=== PATIENT | female | born 1940 | race Caucasian/White ===

== ENCOUNTER 2018-06-19 09:30 | Emergency (ER) | payer MEDICARE, OTHER ==
[~2018-06-19] VITALS: Ht 149.9 cm; Wt 57.6 kg
[2018-06-19 09:42] VITALS: BP 134/66
== END 2018-06-19 10:19 | disposition home or self-care (01) ==
LOC: ER 09:30
DX: R04.2 Hemoptysis (principal); Z87.891 Personal history of nicotine dependence
CPT/HCPCS: 71046

== ENCOUNTER 2019-01-01 18:59 | Inpatient (IN) | payer MEDICARE, OTHER ==
[~2019-01-01] VITALS: Ht 149.9 cm; Wt 63.1 kg
[2019-01-01] MEDS ORDERED: MORPHINE SULFATE 4 MG/ML SYR/VIAL IV ONE (19:45)
[2019-01-01] MEDS ORDERED: ONDANSETRON HCL 4 MG/2 ML VIAL IV ONE (19:45)
[2019-01-01] MEDS ORDERED: HYDROcodone-ACET 5/325MG TAB PO ONE (19:45)
[2019-01-01] MEDS ORDERED: ONDANSETRON ODT 4 MG TAB PO ONE (19:45)
[2019-01-01 22:41] LABS: Albumin 3.7 g/dL (3.4-5.0); Anion Gap 6 (5-15); Blood Urea Nitrogen 18 mg/dL (7-18); Carbon Dioxide 26 mmol/L (21-32); Chloride 110 mmol/L (98-107); Glucose 129 mg/dL (74-106); Potassium 3.5 mmol/L (3.5-5.1); Sodium 142 mmol/L (136-145)
[2019-01-01 22:46] LABS: Alanine Aminotransferase 21 U/L (13-56); Alkaline Phosphatase 88 U/L (45-117); Aspartate Aminotransferase 17 U/L (15-37); Basophils # (auto) 0.1 uL; Basophils % (auto) 0.5 % (0.0-2.0); Bilirubin, Total 0.3 mg/dL (0.2-1.0); Eosinophils # (auto) 0 uL; Eosinophils % (auto) 0.3 % (0.0-7.0); GFR African American 78 mL/min; GFR Non-African American 65 mL/min; Hematocrit 43.6 % (36.0-46.0); Hemoglobin 14.6 g/dL (12.2-16.2); Lymphocytes # (auto) 1.1 uL; Lymphocytes % (auto) 7.5 % (10.0-50.0); Mean Corpuscular Hemoglobin 31.8 pg (28.0-32.0); Mean Corpuscular Hgb Conc. 33.5 g/dL (32.0-36.0); Mean Corpuscular Volume 95.1 fL (80.0-100.0); Monocytes # (auto) 1.1 uL; Monocytes % (auto) 7.2 % (0.0-12.0); Neutrophils # (auto) 12.7 uL; Neutrophils % (auto) 84.5 % (37.0-80.0); Platelet Count (auto) 224 10^3/uL (140-450); Red Blood Cells 4.58 10^6/uL (4.0-5.20); Red Cell Distribution Width 15.8 % (11.8-14.3); Total Protein 6.7 g/dL (6.4-8.2); White Blood Cell 15.1 10^3/uL (4.4-10.8)
[2019-01-01 22:47] LABS: INR 1.02 (0.9-1.15); Partial Thromboplastin Time 25.2 sec (23.64-32.05)
[2019-01-02] MEDS ORDERED: ONDANSETRON HCL 4 MG/2 ML VIAL IV PRN (00:15)
[2019-01-02] MEDS ORDERED: ACETAMINOPHEN 500 MG TAB PO PRN (00:15)
[2019-01-02] MEDS ORDERED: ALBUTEROL SULF 2.5 MG/0.5ML(0.5%) NEB SOLN NEB PRN (00:15)
[2019-01-02] MEDS ORDERED: TEMAZEPAM 15 MG CAP PO PRN (00:15)
--- NOTE | 2019-01-02 00:39 | NUR ---
Respiratory note: PT SEEN AND ASSESSED FOR PRN MED NEB TX WHILE PT IS STILL DOWN IN ER BED 8. TX NOT INDICATED AT THIS TIME. PT DENIES ANY DISTRESS. SHE STATED THAT SHE DOESN'T REALLY LIKE TO TAKE INHALERS OR NEBULIZER TREATMENTS DUE TO THEM MAKING HER ANXIOUS, BUT SHE SAID IF ITS AN EMERGENCY AND SHE REALLY NEEDS THEM THEN SHE'LL TAKE IT. PT STATED HER BREATHING FEELS FINE RIGHT NOW. BREATH SOUNDS WERE CLEAR BILATERALLY. HR 77 RR 18 POX 97% ON ROOM AIR.
[2019-01-02] MEDS: MORPHINE SULF INJ 2 MG/ML SYRINGE 1ML IV PRN ×2 (00:46→23:10)
[2019-01-02 01:00] VITALS: BP 118/63
--- NOTE | 2019-01-02 01:30 | NUR ---
[facility] admit from ER CANDICE,TARAS [place] admitted to [facility]. Patient oriented to Deirdre Kimble, RN primary RN, unit, room, bed, and unit policies regarding patient care and visiting hours. Patient weighed by bed scale and encouraged to call if she needs anything. All questions and concerns addressed, patient verbalized understanding. Note: Patient is A&O x4. Currently on room air with no s/s of distress or SOB noted. 20 gauge IV in left AC flushed with NS and is patent. Splint in place on right forearm. Cap refill is <3 sec. skin is warm and color is WNL. Patient reports 3/10 pain to the area, which she states is tolerable at the moment. Educated on pain management techniques/options. Bed left in low locked position with side rails up x2. Will continue to monitor PRN.
[2019-01-02] MEDS ORDERED: THEO300T5 PO (02:46)
--- NOTE | 2019-01-02 03:45 | NUR ---
UA Urine sample sent to lab.
--- NOTE | 2019-01-02 03:48 | NUR ---
PAIN Patient reports 8/10 burning pain in right wrist. [place] 5/325 administered as ordered and arm elevated on pillow for comfort. Will continue to monitor patients pain level PRN.
[2019-01-02] MEDS: HYDROcodone-ACET 5/325MG TAB PO PRN ×2 (03:51→13:15)
[2019-01-02 05:00] VITALS: BP 130/70
[2019-01-02 06:07] LABS: Urine Bacteria MANY /hpf (None Seen); Urine Blood Negative /uL (Negative); Urine Mucus FEW (None Seen); Urine Specific Gravity 1.023 (1.001-1.035); Urine WBC 27 /hpf (0 - 5)
[2019-01-02 08:33] VITALS: BP 138/70
[2019-01-02 08:42] LABS: Basophils # (auto) 0 uL; Basophils % (auto) 0.3 % (0.0-2.0); Eosinophils # (auto) 0.1 uL; Eosinophils % (auto) 0.7 % (0.0-7.0); Hematocrit 40.1 % (36.0-46.0); Hemoglobin 13.4 g/dL (12.2-16.2); Lymphocytes # (auto) 1.7 uL; Lymphocytes % (auto) 16.9 % (10.0-50.0); Mean Corpuscular Hemoglobin 31.6 pg (28.0-32.0); Mean Corpuscular Hgb Conc. 33.5 g/dL (32.0-36.0); Mean Corpuscular Volume 94.4 fL (80.0-100.0); Monocytes # (auto) 1.1 uL; Monocytes % (auto) 10.4 % (0.0-12.0); Neutrophils # (auto) 7.3 uL; Neutrophils % (auto) 71.7 % (37.0-80.0); Nucleated Red Blood Cells % 0.1 %; Platelet Count (auto) 213 10^3/uL (140-450); Red Blood Cells 4.25 10^6/uL (4.0-5.20); Red Cell Distribution Width 15.3 % (11.8-14.3); White Blood Cell 10.1 10^3/uL (4.4-10.8)
[2019-01-02 08:55] LABS: BUN/Creatinine Ratio 22.4; Calcium 8.6 mg/dL (8.5-10.1); Potassium 3.7 mmol/L (3.5-5.1)
[2019-01-02] MEDS: FAMOTIDINE 20 MG TAB PO SCH (08:58)
[2019-01-02] MEDS ORDERED: FAMOTIDINE 20 MG TAB PO SCH (10:00)
--- NOTE | 2019-01-02 10:10 | NUR ---
Respiratory note: PT ASSESSED FOR PRN MEDNEB TX. NO RESPIRATORY DISTRESS NOTED. TX NOT INDICATED AT THIS TIME. SPO2 94% ON RA HR 80 RR 16 B/S CLEAR-DIMINISHED. PT AWARE TO HAVE RT PAGED IF THEY BECOME SOB.
[2019-01-02] MEDS ORDERED: cefTRIAXone 1GM/50ML D5W 50 ML IV ONE (12:45)
--- NOTE | 2019-01-02 12:48 | NUR ---
CORRECTED TIME 709 Addendum: 01/02/19 at 1249 by Liliane Alcantar RN written by mistake
--- NOTE | 2019-01-02 12:48 | NUR ---
Opening Shift Note Assumed care of patient, awake and alert, sitting up in bed watching television. No S/S of distress/SOB, no pain noted or reported at this time. Respirations are even and unlabored. Instructed on POC and instructed to call for assistance as needed, pt. verbalized understanding. Bed locked in lowest position, side rails up x2, call light within reach. Will continue to monitor for changes Q1hr and PRN. Addendum: 01/02/19 at 1249 by Liliane Alcantar RN CORRECTED TIME 0710
[2019-01-02 13:00] VITALS: BP 147/61
[2019-01-02 17:00] VITALS: BP 140/69
--- NOTE | 2019-01-02 18:42 | NUR ---
Care endorsed to shift nurse manager RN. No S/s of distress or SOB.
--- NOTE | 2019-01-02 19:23 | NUR ---
Opening Shift Note Assumed care of patient, awake and alert. No S/S of distress/SOB or pain. Instructed on POC and to call for assist PRN, will continue to monitor for changes Q1hr and PRN.
[2019-01-02 23:01] VITALS: BP 128/52
--- NOTE | 2019-01-03 03:13 | NUR ---
PT SEEN SLEEPING ON RA WITH SPO2 91%, BS CLEAR AND DIMINISHED. PRN NEB TX NOT GIVEN AT THIS TIME.
[2019-01-03] MEDS: HYDROcodone-ACET 5/325MG TAB PO PRN ×2 (04:07→09:14)
[2019-01-03 05:00] VITALS: BP 120/61
--- NOTE | 2019-01-03 07:00 | NUR ---
Consent signed for procedure
--- NOTE | 2019-01-03 07:10 | NUR ---
Opening Shift Note Assumed care of patient, awake and alert, sitting up in bed watching television. No S/S of distress/SOB, no pain noted or reported at this time. Respirations are even and unlabored. Instructed on POC and instructed to call for assistance as needed, pt. verbalized understanding. Bed locked in lowest position, side rails up x2, call light within reach. Will continue to monitor for changes Q1hr and PRN.
--- NOTE | 2019-01-03 07:59 | NUR ---
Endorsed care to day shift RN.
[2019-01-03 08:07] LABS: Basophils # (auto) 0.1 uL; Basophils % (auto) 0.7 % (0.0-2.0); Eosinophils # (auto) 0.1 uL; Eosinophils % (auto) 1.7 % (0.0-7.0); Hematocrit 42.4 % (36.0-46.0); Hemoglobin 13.9 g/dL (12.2-16.2); Lymphocytes # (auto) 1.8 uL; Lymphocytes % (auto) 20.9 % (10.0-50.0); Mean Corpuscular Hemoglobin 31.7 pg (28.0-32.0); Mean Corpuscular Hgb Conc. 32.7 g/dL (32.0-36.0); Mean Corpuscular Volume 96.9 fL (80.0-100.0); Monocytes # (auto) 1.1 uL; Monocytes % (auto) 13.1 % (0.0-12.0); Neutrophils # (auto) 5.6 uL; Neutrophils % (auto) 63.6 % (37.0-80.0); Nucleated Red Blood Cells % 0.1 %; Platelet Count (auto) 180 10^3/uL (140-450); Red Blood Cells 4.37 10^6/uL (4.0-5.20); Red Cell Distribution Width 15.9 % (11.8-14.3); White Blood Cell 8.7 10^3/uL (4.4-10.8)
[2019-01-03 09:00] VITALS: BP 137/61
[2019-01-03 09:00] LABS: BUN/Creatinine Ratio 17.4; Calcium 8.5 mg/dL (8.5-10.1); Potassium 3.6 mmol/L (3.5-5.1)
[2019-01-03] MEDS: cefTRIAXone 1GM/50ML D5W 50 ML IV SCH (09:13)
[2019-01-03] MEDS: FAMOTIDINE 20 MG TAB PO SCH (09:14)
[2019-01-03] MEDS ORDERED: ONDANSETRON HCL 4 MG/2 ML VIAL ONE (09:56)
[2019-01-03] MEDS ORDERED: PROPOFOL 10 MG/ML 20 ML IV ONE (09:56)
[2019-01-03] MEDS ORDERED: MIDAZOLAM HCL 1MG/1ML-2 ML VIAL ONE (09:56)
[2019-01-03] MEDS ORDERED: MEPERIDINE HCL (25 MG/ML) 1ML VIAL ONE (09:56)
[2019-01-03] MEDS ORDERED: fentaNYL CITRATE 100 MCG/2 ML VL ONE (09:56)
[2019-01-03] MEDS ORDERED: SODIUM CHLORIDE LOCK 10 ML ONE (09:56)
--- NOTE | 2019-01-03 10:00 | NUR ---
IV removal Left AC IV DC'd with clean sterile technique, catheter fully intact. Pressure dressing applied to site. Patient tolerated well.
--- NOTE | 2019-01-03 10:30 | NUR ---
IV insertion IV access obtained, via clean sterile technique by inserting 22 gauge catheter at left forearm after 4 attempt(s). IV secured properly. No trauma to site. Patient tolerated well.
--- NOTE | 2019-01-03 10:45 | NUR ---
Pt. taken down to OR for procedure
[2019-01-03] MEDS ORDERED: ceFAZolin 1GM/50ML 50 ML IV ONE (10:50)
[2019-01-03] MEDS ORDERED: HYDROmorphone HCL 2 MG/ML VL IV PRN (11:30)
[2019-01-03] MEDS ORDERED: METOCLOPRAMIDE HCL 5MG/ml INJ 2ml VIAL IV ONE (11:30)
[2019-01-03] MEDS ORDERED: KETOROLAC TROMETH 15 mg/ml 1ML VL IV ONE (11:30)
[2019-01-03] MEDS ORDERED: LIDOCAINE 1% HCL (LOCAL ANESTH.) INJ 20ML MDV ONE (11:53)
[2019-01-03] MEDS ORDERED: LIDOCAINE HCL 2% TOP JELLY 5ML TOP ONE (12:01)
[2019-01-03] MEDS ORDERED: HYDROcodone-ACET 10/325MG TAB PO PRN (13:30)
--- NOTE | 2019-01-03 13:35 | NUR ---
Pt. back from OR.
--- NOTE | 2019-01-03 15:34 | NUR ---
assessment Patient is a 78 year old female who is alert and oriented. Patient lived home with family and functioned independently prior to admission. Patient informed me she was entering the garage that was half down and her hat hit the edge and she fell backwards and tried to brace her fall and broke her wrist. Patients niece is at bedside and will help patient on discharge. Patient has no post discharge needs at this time. Addendum: 01/05/19 at 1538 by Sonia HURLEY Amended: Links added.
[2019-01-03] MEDS: MORPHINE SULF INJ 2 MG/ML SYRINGE 1ML IV PRN (15:41)
[2019-01-03 16:37] VITALS: BP 144/72
[2019-01-03] MEDS: HYDROcodone-ACET 7.5/325MG TAB PO PRN ×2 (18:39→23:41)
--- NOTE | 2019-01-03 18:52 | NUR ---
Care endorsed to correctional casework specialist RN. Pt. sitting up in bed eating dinner, No S/S of distress or SOB.
--- NOTE | 2019-01-03 19:30 | NUR ---
Opening Shift Note Assumed care of patient, awake and alert x4. Patient denies pain at this time. Instructed on plan of care and to call for assistance as needed. Bed is locked in lowest position, side rails x 2 are up, call light is within reach, and bed alarm is on.
[2019-01-03] MEDS: HYDROmorphone HCL 2 MG/ML VL IV PRN (20:17)
[2019-01-03 22:00] VITALS: BP 131/66
[2019-01-04 02:13] VITALS: BP 120/68
[2019-01-04] MEDS: HYDROmorphone HCL 2 MG/ML VL IV PRN (02:14)
--- NOTE | 2019-01-04 02:30 | NUR ---
PT SEEN RESTING IN BED ON 2L NC WITH SPO2 96%, BS CLEAR AND DIMINISHED. PRN NEB TX NOT GIVEN AT THIS TIME.
[2019-01-04] MEDS: HYDROcodone-ACET 7.5/325MG TAB PO PRN ×3 (04:40→15:33)
[2019-01-04 05:00] VITALS: BP 133/83
--- NOTE | 2019-01-04 07:15 | NUR ---
Opening Shift Note Assumed care of patient, awake and alert, resting in bed. No S/S of distress/SOB, no pain noted or reported at this time. Respirations are even and unlabored. Instructed on POC and instructed to call for assistance as needed, pt. verbalized understanding. Bed locked in lowest position, side rails up x2, call light within reach. Will continue to monitor for changes Q1hr and PRN.
[2019-01-04 07:37] LABS: Basophils # (auto) 0 uL; Basophils % (auto) 0.5 % (0.0-2.0); Eosinophils # (auto) 0.2 uL; Eosinophils % (auto) 2.3 % (0.0-7.0); Hemoglobin 13.4 g/dL (12.2-16.2); Lymphocytes # (auto) 1.4 uL; Lymphocytes % (auto) 16.1 % (10.0-50.0); Mean Corpuscular Hemoglobin 31.8 pg (28.0-32.0); Mean Corpuscular Hgb Conc. 33.6 g/dL (32.0-36.0); Mean Corpuscular Volume 94.7 fL (80.0-100.0); Monocytes # (auto) 1.2 uL; Monocytes % (auto) 13.7 % (0.0-12.0); Neutrophils # (auto) 5.8 uL; Neutrophils % (auto) 67.4 % (37.0-80.0); Platelet Count (auto) 175 10^3/uL (140-450); Red Blood Cells 4.22 10^6/uL (4.0-5.20); Red Cell Distribution Width 15.3 % (11.8-14.3); White Blood Cell 8.6 10^3/uL (4.4-10.8)
--- NOTE | 2019-01-04 07:39 | NUR ---
CLOSING SHIFT NOTE Endorsed patient care to Liliane BRYSON.
[2019-01-04 07:44] LABS: BUN/Creatinine Ratio 18.8; Calcium 8.9 mg/dL (8.5-10.1); Potassium 4.2 mmol/L (3.5-5.1)
[2019-01-04] MEDS: FAMOTIDINE 20 MG TAB PO SCH (08:39)
[2019-01-04] MEDS: cefTRIAXone 1GM/50ML D5W 50 ML IV SCH (08:39)
[2019-01-04 09:00] VITALS: BP 130/54
--- NOTE | 2019-01-04 09:11 | NUR ---
Respiratory note: ROUTINE PRN TX CHECK. HR 80, RR 18, POX 93% ON 3L/M NC, BREATH SOUNDS ARE CLEAR/DIMINISHED. NO SOB OR DISTRESS NOTED. PT WAS NOTIFY TO HAVE RN PAGE RT FOR MN TX.
--- NOTE | 2019-01-04 11:03 | NUR ---
IV removal IV DC'd with clean sterile technique, catheter fully intact. Pressure dressing applied to site. Patient tolerated well.
[2019-01-04 12:41] VITALS: BP 138/86
[2019-01-04 12:56] VITALS: BP 138/86
--- NOTE | 2019-01-04 15:50 | NUR ---
SPOKE WITH DR. QUIROZ REGARDING HOSPITALIST DISCHARGE DR. QUIROZ SAID PT. IS CLEARED TO BE DISCHARGED AND TO FOLLOW UP IN HIS OFFICE NEXT WEDNESDAY. APPOINTMENT SCHEDULED FOR January.
--- NOTE | 2019-01-04 16:30 | NUR ---
Discharge instructions given as ordered. Encourage to follow up with PCP and ortho surgeon Dr Estrada as instructed. All questions and concerns addressed. Patient verbalized understanding. Medication reconciliation form completed and copy given to patient. Patient taken to vehicle via wheelchair with all personal belongings, accompanied by staff and family member. No distress noted at time of departure.
== END 2019-01-04 16:35 | disposition home or self-care (01) | DRG 510 ==
LOC: ER 18:59 → EDBD 18:59 → OVERFLOW 19:00 → WEST WING 01-02 01:37
PROVIDERS: ADMIT Nurse Practitioner Family; ATTEND Internal Medicine
PROC: 0PSH34Z Reposition Right Radius with Internal Fixation Device, Percutaneous Approach (ICD-10-PCS; principal; 2019-01-03 11:59)
DX: S52.531A Colles' fracture of right radius, initial encounter for closed fracture (principal); N17.0 Acute kidney failure with tubular necrosis; N39.0 Urinary tract infection, site not specified; J44.9 Chronic obstructive pulmonary disease, unspecified; N18.9 Chronic kidney disease, unspecified; Y93.01 Activity, walking, marching and hiking; W18.39XA Other fall on same level, initial encounter; Y92.89 Other specified places as the place of occurrence of the external cause; Y99.8 Other external cause status; Z88.2 Allergy status to sulfonamides
CPT/HCPCS: 36415; 71045; 73100; 73110; 76000; 80048; 80053; 81001; 83880; 84484; 85025; 85610; 85730; 93005; 96365; 96375; G0378; J0690; J0696; J2001; J2250; J2405; J2704

== ENCOUNTER 2019-08-23 09:44 | Emergency (ER) | payer MEDICARE, OTHER ==
[~2019-08-23] VITALS: Ht 149.9 cm; Wt 57.6 kg
[~2019-08-23 09:44] MED LIST: THEO300T5 PO
[2019-08-23 10:16] LABS: Basophils # (auto) 0.1 uL; Basophils % (auto) 0.8 % (0.0-2.0); Eosinophils # (auto) 0.1 uL; Eosinophils % (auto) 0.6 % (0.0-7.0); Hematocrit 45.5 % (36.0-46.0); Hemoglobin 15.3 g/dL (12.2-16.2); Lymphocytes # (auto) 1.8 uL; Lymphocytes % (auto) 19.7 % (10.0-50.0); Mean Corpuscular Hemoglobin 31.1 pg (28.0-32.0); Mean Corpuscular Hgb Conc. 33.6 g/dL (32.0-36.0); Mean Corpuscular Volume 92.6 fL (80.0-100.0); Neutrophils # (auto) 6.3 uL; Neutrophils % (auto) 67.9 % (37.0-80.0); Nucleated Red Blood Cells % 0.1 %; Platelet Count (auto) 269 10^3/uL (140-450); Red Blood Cells 4.91 10^6/uL (4.0-5.20); Red Cell Distribution Width 14.2 % (11.8-14.3); White Blood Cell 9.2 10^3/uL (4.4-10.8)
[2019-08-23 10:31] LABS: Albumin 3.7 g/dL (3.4-5.0); Blood Urea Nitrogen 12 mg/dL (7-18); Calcium 9.3 mg/dL (8.5-10.1); Carbon Dioxide 27 mmol/L (21-32); Glucose 95 mg/dL (74-106)
[2019-08-23] MEDS ORDERED: IBUPROFEN 600 MG TAB PO ONE (10:45)
[2019-08-23 10:51] LABS: Alanine Aminotransferase 14 U/L (13-56); Alkaline Phosphatase 111 U/L (45-117); Anion Gap 6 (5-15); Aspartate Aminotransferase 14 U/L (15-37); BUN/Creatinine Ratio 15.6; Bilirubin, Total 0.5 mg/dL (0.2-1.0); Chloride 107 mmol/L (98-107); GFR African American 93 mL/min; GFR Non-African American 77 mL/min; Potassium 3.7 mmol/L (3.5-5.1); Sodium 140 mmol/L (136-145); Total Protein 7.6 g/dL (6.4-8.2)
[2019-08-23 11:29] LABS: Urine Bacteria FEW /hpf (None Seen); Urine Blood Negative /uL (Negative); Urine Specific Gravity 1.007 (1.001-1.035); Urine WBC 5 /hpf (0 - 5)
[2019-08-23 12:25] VITALS: BP 128/58
== END 2019-08-23 12:24 | disposition home or self-care (01) ==
LOC: ER 09:44
DX: R07.89 Other chest pain (principal); N39.0 Urinary tract infection, site not specified; J44.9 Chronic obstructive pulmonary disease, unspecified; Z88.2 Allergy status to sulfonamides
CPT/HCPCS: 36415; 71046; 80053; 81001; 84484; 85025; 93005

== ENCOUNTER 2021-07-06 09:50 | Inpatient (IN) | payer MEDICARE, OTHER ==
[~2021-07-06] VITALS: Ht 144.8 cm; Wt 59.2 kg
[2021-07-06 10:43] LABS: Basophils # (auto) 0.1 10 ^3/uL (0-0.2); Basophils % (auto) 0.8 % (0.0-2.0); Eosinophils # (auto) 0.1 10 ^3/uL (0-0.8); Eosinophils % (auto) 0.8 % (0.0-7.0); Hematocrit 44.1 % (36.0-46.0); Hemoglobin 14.9 g/dL (12.2-16.2); Lymphocytes # (auto) 1.7 10 ^3/uL (0.4-5.4); Lymphocytes % (auto) 23.7 % (10.0-50.0); Mean Corpuscular Hemoglobin 31.5 pg (28.0-32.0); Mean Corpuscular Hgb Conc. 33.8 g/dL (32.0-36.0); Mean Corpuscular Volume 93.2 fL (80.0-100.0); Monocytes # (auto) 1.3 10 ^3/uL (0-1.3); Monocytes % (auto) 18.2 % (0.0-12.0); Neutrophils % (auto) 56.5 % (37.0-80.0); Nucleated Red Blood Cells % 0.1 %; Red Blood Cells 4.74 10^6/uL (4.0-5.20); White Blood Cell 7.2 10^3/uL (4.4-10.8)
[2021-07-06 11:13] LABS: Albumin 3.3 g/dL (3.4-5.0); Calcium 8.6 mg/dL (8.5-10.1); Potassium 3.4 mmol/L (3.5-5.1)
[2021-07-06 11:19] LABS: BUN/Creatinine Ratio 16.5; Bilirubin, Total 0.3 mg/dL (0.2-1.0); Total Protein 6.9 g/dL (6.4-8.2)
[2021-07-06] MEDS ORDERED: methylPREDNISolone SOD SUCC 125 MG/2 ML VL IV ONE (11:30)
[2021-07-06] MEDS ORDERED: IPRATROPIUM BROM 0.5 MG/2.5ML INH SOL NEB ONE ×2 (11:30→19:30)
[2021-07-06] MEDS ORDERED: ALBUTEROL SULF 2.5 MG/0.5ML(0.5%) NEB SOLN NEB ONE ×2 (11:30→19:30)
[2021-07-06 15:13] LABS: Urine Bacteria MANY /hpf (None Seen); Urine Blood Negative /uL (Negative); Urine Mucus FEW (None Seen); Urine Specific Gravity 1.008 (1.001-1.035); Urine WBC 28 /hpf (0 - 5)
[2021-07-06] MEDS ORDERED: cefTRIAXone 1GM/50ML D5W 50 ML IV ONE (15:45)
[2021-07-06] MEDS ORDERED: POTASSIUM EFFERVESENT TAB 25 MEQ PO ONE (15:45)
[2021-07-06] MEDS ORDERED: MORPHINE SULFATE INJECTION 2 MG/ML SYRG IV PRN ×3 (18:00→20:15)
[2021-07-06] MEDS ORDERED: NITROGLYCERIN 0.4 MG SL TAB SL PRN ×2 (18:00→20:15)
[2021-07-06] MEDS ORDERED: MAGNESIUM SULFATE 1GM/100ML 100 ML IV ONE (19:15)
[2021-07-06] MEDS ORDERED: THEOPHYLLINE 80 MG/15ml ORAL Elixir PO ONE (19:15)
[2021-07-06] MEDS ORDERED: AZITHROMYCIN 500MG/ 250ML 250 ML IV ONE (19:30)
[2021-07-06] MEDS ORDERED: BRIMONIDINE 0.2% OPTH Soln 5ml EACHEYE ONE (19:30)
[2021-07-06] MEDS ORDERED: ALBUTEROL SULF 2.5 MG/0.5ML(0.5%) NEB SOLN NEB PRN (19:30)
[2021-07-06] MEDS ORDERED: BUDESONIDE (INHALATION) 0.5 MG/2 ML NEB NEB ONE (19:30)
[2021-07-06] MEDS ORDERED: LORazepam 0.5 MG TAB PO PRN (20:15)
[2021-07-06] MEDS ORDERED: HYDROcodone-ACET 5/325MG TAB PO PRN (20:15)
[2021-07-06] MEDS ORDERED: DOCUSATE SOD 100 MG CAP PO PRN (20:15)
[2021-07-06] MEDS ORDERED: ONDANSETRON HCL 4 MG/2 ML VIAL IV PRN (20:15)
[2021-07-06] MEDS ORDERED: ALUM & MAG HYDROX-SIMETH LIQ(MAALOX) 30 ML PO PRN (20:15)
[2021-07-06] MEDS ORDERED: ACETAMINOPHEN 325 MG TAB PO PRN (20:15)
[2021-07-06 20:54] LABS: Cholesterol 183 mg/dL (< 200)
[2021-07-06 20:55] LABS: Barbiturate Scree,Urine NEGATIVE (NEGATIVE); Benzodiazephine Screen, Urine NEGATIVE (NEGATIVE); Cannabinoid Screen, Urine NEGATIVE (NEGATIVE); Cocaine Screen, Urine NEGATIVE (NEGATIVE); Opiate Scree,Urine NEGATIVE (NEGATIVE); Phencyclidine Screen, Urine NEGATIVE (NEGATIVE)
[2021-07-06 20:57] LABS: HDL Cholesterol 62 mg/dL (40-59); LDL Cholesterol 97 mg/dL (< 100); Triglycerides 118 mg/dL (< 150)
[2021-07-06 21:01] LABS: Amphetamine Screen, Urine NEGATIVE (NEGATIVE)
[2021-07-06 22:00] VITALS: BP 131/71
[2021-07-06] MEDS: BUDESONIDE (INHALATION) 0.5 MG/2 ML NEB NEB SCH (22:00)
[2021-07-06] MEDS: IPRATROPIUM BROM 0.5 MG/2.5ML INH SOL NEB SCH (22:00)
[2021-07-06] MEDS: THEOPHYLLINE 80 MG/15ml ORAL Elixir PO SCH (22:00)
[2021-07-06] MEDS ORDERED: IPRATROPIUM BROM 0.5 MG/2.5ML INH SOL NEB SCH (22:00)
[2021-07-06] MEDS ORDERED: BUDESONIDE (INHALATION) 0.5 MG/2 ML NEB NEB SCH (22:00)
[2021-07-06] MEDS: BRIMONIDINE 0.2% OPTH Soln 5ml EACHEYE SCH (22:00)
[2021-07-06] MEDS: ALBUTEROL SULF 2.5 MG/0.5ML(0.5%) NEB SOLN NEB SCH (22:00)
[2021-07-06] MEDS: methylPREDNISolone SOD SUCC 40 MG/ML VL IV SCH (22:34)
[2021-07-06] MEDS: POTASSIUM CHL 20 Meq TABLET PO SCH (22:35)
[2021-07-07] VITALS (7 sets, daily range): BP systolic 108–131; BP diastolic 60–77
[2021-07-07] MEDS: ALBUTEROL SULF 2.5 MG/0.5ML(0.5%) NEB SOLN NEB SCH ×6 (02:03→22:38)
[2021-07-07] MEDS: IPRATROPIUM BROM 0.5 MG/2.5ML INH SOL NEB SCH ×6 (02:04→22:38)
[2021-07-07] MEDS ORDERED: THEO400T10 PO (03:30)
[2021-07-07 05:24] LABS: Basophils # (auto) 0 10 ^3/uL (0-0.2); Basophils % (auto) 0.1 % (0.0-2.0); Eosinophils # (auto) 0 10 ^3/uL (0-0.8); Hematocrit 42.1 % (36.0-46.0); Hemoglobin 14.3 g/dL (12.2-16.2); Lymphocytes # (auto) 0.6 10 ^3/uL (0.4-5.4); Lymphocytes % (auto) 11.1 % (10.0-50.0); Mean Corpuscular Hemoglobin 31.5 pg (28.0-32.0); Mean Corpuscular Hgb Conc. 33.9 g/dL (32.0-36.0); Monocytes # (auto) 0.3 10 ^3/uL (0-1.3); Neutrophils # (auto) 4.7 10 ^3/uL (1.6-8.6); Neutrophils % (auto) 83.8 % (37.0-80.0); Red Blood Cells 4.53 10^6/uL (4.0-5.20); Red Cell Distribution Width 14.7 % (11.8-14.3); White Blood Cell 5.7 10^3/uL (4.4-10.8)
[2021-07-07 05:42] LABS: Albumin 3.1 g/dL (3.4-5.0); Calcium 8.5 mg/dL (8.5-10.1); Potassium 4.4 mmol/L (3.5-5.1)
[2021-07-07 05:48] LABS: BUN/Creatinine Ratio 22.7; Bilirubin, Total 0.2 mg/dL (0.2-1.0); INR 1.05 (0.9-1.15); Partial Thromboplastin Time 23.9 sec (23.6-33.0); Phosphorus 2.5 mg/dL (2.5-4.90); Total Protein 6.4 g/dL (6.4-8.2)
[2021-07-07] MEDS: FUROSEMIDE 20 MG/2 ML VIAL IV SCH ×2 (05:51→17:52)
[2021-07-07] MEDS: methylPREDNISolone SOD SUCC 40 MG/ML VL IV SCH ×3 (05:52→21:21)
[2021-07-07] MEDS: BUDESONIDE (INHALATION) 0.5 MG/2 ML NEB NEB SCH ×2 (06:06→22:38)
[2021-07-07] MEDS: THEOPHYLLINE 80 MG/15ml ORAL Elixir PO SCH ×3 (06:57→21:21)
[2021-07-07] MEDS: BRIMONIDINE 0.2% OPTH Soln 5ml EACHEYE SCH ×3 (06:57→21:29)
[2021-07-07] MEDS: cefTRIAXone 1GM/50ML D5W 50 ML IV SCH (09:09)
[2021-07-07] MEDS: AZITHROMYCIN 500MG/ 250ML 250 ML IV SCH (09:09)
[2021-07-07] MEDS: POTASSIUM CHL 20 Meq TABLET PO SCH ×2 (09:10→21:21)
[2021-07-07] MEDS: ENOXAPARIN SOD 40 MG/0.4 ML SYRINGE SC SCH (09:10)
[2021-07-08 04:53] VITALS: BP 122/67
[2021-07-08] MEDS: IPRATROPIUM BROM 0.5 MG/2.5ML INH SOL NEB SCH ×5 (05:34→23:10)
[2021-07-08] MEDS: ALBUTEROL SULF 2.5 MG/0.5ML(0.5%) NEB SOLN NEB SCH ×5 (05:34→23:10)
[2021-07-08] MEDS: BUDESONIDE (INHALATION) 0.5 MG/2 ML NEB NEB SCH ×2 (05:34→19:16)
[2021-07-08 06:04] LABS: BUN/Creatinine Ratio 31.6; Calcium 8.4 mg/dL (8.5-10.1); Potassium 4.5 mmol/L (3.5-5.1)
[2021-07-08] MEDS: THEOPHYLLINE 80 MG/15ml ORAL Elixir PO SCH ×3 (06:07→22:00)
[2021-07-08] MEDS: BRIMONIDINE 0.2% OPTH Soln 5ml EACHEYE SCH ×2 (06:07→18:00)
[2021-07-08] MEDS: FUROSEMIDE 20 MG/2 ML VIAL IV SCH ×2 (06:09→18:24)
[2021-07-08 06:21] LABS: Basophils # (auto) 0 10 ^3/uL (0-0.2); Basophils % (auto) 0.1 % (0.0-2.0); Eosinophils # (auto) 0 10 ^3/uL (0-0.8); Hematocrit 41.1 % (36.0-46.0); Lymphocytes % (auto) 6.1 % (10.0-50.0); Mean Corpuscular Hemoglobin 31.4 pg (28.0-32.0); Mean Corpuscular Volume 92.5 fL (80.0-100.0); Monocytes # (auto) 0.6 10 ^3/uL (0-1.3); Monocytes % (auto) 3.9 % (0.0-12.0); Neutrophils # (auto) 14.9 10 ^3/uL (1.6-8.6); Neutrophils % (auto) 89.9 % (37.0-80.0); Nucleated Red Blood Cells % 0.1 %; Red Blood Cells 4.45 10^6/uL (4.0-5.20); Red Cell Distribution Width 14.8 % (11.8-14.3); White Blood Cell 16.6 10^3/uL (4.4-10.8)
[2021-07-08 09:00] VITALS: BP 113/56
[2021-07-08] MEDS: POTASSIUM CHL 20 Meq TABLET PO SCH ×2 (09:48→22:45)
[2021-07-08] MEDS: methylPREDNISolone SOD SUCC 40 MG/ML VL IV SCH ×2 (09:48→22:44)
[2021-07-08] MEDS: ENOXAPARIN SOD 40 MG/0.4 ML SYRINGE SC SCH (09:48)
[2021-07-08] MEDS: cefTRIAXone 1GM/50ML D5W 50 ML IV SCH (09:48)
[2021-07-08 13:00] VITALS: BP 122/64
[2021-07-08] MEDS: AZITHROMYCIN 500MG/ 250ML 250 ML IV SCH (14:30)
[2021-07-08 17:00] VITALS: BP 121/59
[2021-07-08 20:00] VITALS: BP 103/61
[2021-07-09 05:18] LABS: Basophils # (auto) 0 10 ^3/uL (0-0.2); Basophils % (auto) 0.1 % (0.0-2.0); Eosinophils # (auto) 0 10 ^3/uL (0-0.8); Hematocrit 40.2 % (36.0-46.0); Hemoglobin 13.3 g/dL (12.2-16.2); Lymphocytes % (auto) 7.1 % (10.0-50.0); Mean Corpuscular Hemoglobin 30.9 pg (28.0-32.0); Mean Corpuscular Hgb Conc. 33.2 g/dL (32.0-36.0); Mean Corpuscular Volume 93.1 fL (80.0-100.0); Monocytes # (auto) 0.5 10 ^3/uL (0-1.3); Monocytes % (auto) 3.3 % (0.0-12.0); Neutrophils # (auto) 12.5 10 ^3/uL (1.6-8.6); Neutrophils % (auto) 89.5 % (37.0-80.0); Nucleated Red Blood Cells % 0.1 %; Red Blood Cells 4.32 10^6/uL (4.0-5.20); Red Cell Distribution Width 14.8 % (11.8-14.3)
[2021-07-09 05:36] LABS: Calcium 8.6 mg/dL (8.5-10.1); Potassium 5.1 mmol/L (3.5-5.1)
[2021-07-09 05:38] VITALS: BP 109/65
[2021-07-09] MEDS: THEOPHYLLINE 80 MG/15ml ORAL Elixir PO SCH ×3 (06:00→22:17)
[2021-07-09] MEDS: FUROSEMIDE 20 MG/2 ML VIAL IV SCH ×2 (06:11→17:51)
[2021-07-09] MEDS: BRIMONIDINE 0.2% OPTH Soln 5ml EACHEYE SCH ×2 (06:11→17:47)
[2021-07-09] MEDS: IPRATROPIUM BROM 0.5 MG/2.5ML INH SOL NEB SCH ×5 (06:44→22:48)
[2021-07-09] MEDS: ALBUTEROL SULF 2.5 MG/0.5ML(0.5%) NEB SOLN NEB SCH ×5 (06:44→22:48)
[2021-07-09 09:00] VITALS: BP 105/61
[2021-07-09] MEDS: methylPREDNISolone SOD SUCC 40 MG/ML VL IV SCH ×2 (09:53→22:16)
[2021-07-09] MEDS: ENOXAPARIN SOD 40 MG/0.4 ML SYRINGE SC SCH (09:53)
[2021-07-09] MEDS: AZITHROMYCIN 500MG/ 250ML 250 ML IV SCH (09:54)
[2021-07-09] MEDS: cefTRIAXone 1GM/50ML D5W 50 ML IV SCH (09:54)
[2021-07-09] MEDS: POTASSIUM CHL 20 Meq TABLET PO SCH ×2 (09:55→22:00)
[2021-07-09 13:00] VITALS: BP 111/62
[2021-07-09 17:00] VITALS: BP 109/63
[2021-07-09] MEDS: BUDESONIDE (INHALATION) 0.5 MG/2 ML NEB NEB SCH (18:37)
[2021-07-09 22:13] VITALS: BP 115/69
[2021-07-10 05:00] VITALS: BP 122/60
[2021-07-10] MEDS: FUROSEMIDE 20 MG/2 ML VIAL IV SCH (05:55)
[2021-07-10] MEDS: THEOPHYLLINE 80 MG/15ml ORAL Elixir PO SCH ×2 (05:56→14:00)
[2021-07-10] MEDS: BRIMONIDINE 0.2% OPTH Soln 5ml EACHEYE SCH (05:56)
[2021-07-10 06:47] LABS: Hematocrit 44.7 % (36.0-46.0); Hemoglobin 14.9 g/dL (12.2-16.2); Mean Corpuscular Hemoglobin 31.3 pg (28.0-32.0); Mean Corpuscular Hgb Conc. 33.4 g/dL (32.0-36.0); Mean Corpuscular Volume 93.7 fL (80.0-100.0); Red Blood Cells 4.77 10^6/uL (4.0-5.20); White Blood Cell 14.1 10^3/uL (4.4-10.8)
[2021-07-10 07:14] LABS: Anion Gap 14 (5-15); BUN/Creatinine Ratio 31.7; Blood Urea Nitrogen 26 mg/dL (7-18); Calcium 9.1 mg/dL (8.5-10.1); Carbon Dioxide 20 mmol/L (21-32); Chloride 103 mmol/L (98-107); GFR African American 86 mL/min; GFR Non-African American 71 mL/min; Glucose 116 mg/dL (74-106); Potassium 5.1 mmol/L (3.5-5.1); Sodium 137 mmol/L (136-145)
[2021-07-10 07:16] LABS: Basophils % (manual) 0 (0.0-2.0); Blast Cells 0; Eosinophils % (manual) 0 (0-7); Myelocytes % 0; Promyelocytes % 0; Reactive Lymphocytes 0
[2021-07-10] MEDS: IPRATROPIUM BROM 0.5 MG/2.5ML INH SOL NEB SCH ×3 (07:47→13:48)
[2021-07-10] MEDS: ALBUTEROL SULF 2.5 MG/0.5ML(0.5%) NEB SOLN NEB SCH ×3 (07:47→13:48)
[2021-07-10 08:24] LABS: Band Neutrophils % (manual) 2; Lymphocytes % (manual) 12 (10.0-50.0); Metamyelocytes % 1; Monocytes % (manual) 2 (0-12)
[2021-07-10 09:00] VITALS: BP 102/51
[2021-07-10] MEDS: cefTRIAXone 1GM/50ML D5W 50 ML IV SCH (09:40)
[2021-07-10] MEDS: ENOXAPARIN SOD 40 MG/0.4 ML SYRINGE SC SCH (09:41)
[2021-07-10] MEDS: methylPREDNISolone SOD SUCC 40 MG/ML VL IV SCH (09:45)
[2021-07-10] MEDS: POTASSIUM CHL 20 Meq TABLET PO SCH (09:46)
[2021-07-10] MEDS: BUDESONIDE (INHALATION) 0.5 MG/2 ML NEB NEB SCH (10:00)
[2021-07-10] MEDS ORDERED: PRED20TA2 PO (10:15)
[2021-07-10] MEDS ORDERED: ALBU1AER4 IN (10:15)
[2021-07-10] MEDS ORDERED: CEPH-322 PO (10:16)
[2021-07-10] MEDS: AZITHROMYCIN 500MG/ 250ML 250 ML IV SCH (10:50)
[2021-07-10 12:38] VITALS: BP 138/69
[2021-07-10 16:48] VITALS: BP 118/66
== END 2021-07-10 18:05 | disposition home or self-care (01) | DRG 190 ==
LOC: ER 09:50 → OVERFLOW 17:56 → EAST 23:12 → CENTRAL 07-07 17:36
PROVIDERS: ADMIT Hospitalist; ATTEND Internal Medicine Pulmonary Disease
DX: J44.1 Chronic obstructive pulmonary disease with (acute) exacerbation (principal); J96.01 Acute respiratory failure with hypoxia; N39.0 Urinary tract infection, site not specified; E44.1 Mild protein-calorie malnutrition; E87.6 Hypokalemia; B96.1 Klebsiella pneumoniae [K. pneumoniae] as the cause of diseases classified elsewhere; F17.200 Nicotine dependence, unspecified, uncomplicated; Z20.822 Contact with and (suspected) exposure to COVID-19; Z83.3 Family history of diabetes mellitus; Z68.25 Body mass index [BMI] 25.0-25.9, adult; Z88.2 Allergy status to sulfonamides
CPT/HCPCS: 36415; 36600; 71045; 80048; 80053; 80061; 80307; 81001; 82805; 83036; 83735; 83880; 84100; 84484; 85007; 85025; 85027; 85379; 85610; 85730; 87040; 87086; 87088; 87186; 87205; 87426; 93005; 94640; 96365; G0378; J0696

== ENCOUNTER 2022-12-17 04:03 | Inpatient (IN) | payer OTHER ==
[~2022-12-17] VITALS: Ht 160 cm; Wt 68.0 kg
[~2022-12-17 04:03] MED LIST changes: +ALBU1AER4 IN; +CEPH250C PO; +PRED20TA2 PO; +THEO400T8 PO
[2022-12-17] MEDS ORDERED: HYDROmorphone HCL 2 MG/ML VL/or syr IV ONE (04:15)
[2022-12-17] MEDS ORDERED: ONDANSETRON ODT 4 MG TAB PO ONE (06:15)
[2022-12-17 07:40] LABS: Basophils # (auto) 0.1 10 ^3/uL (0-0.2); Basophils % (auto) 0.4 % (0.0-2.0); Eosinophils # (auto) 0 10 ^3/uL (0-0.8); Eosinophils % (auto) 0.1 % (0.0-7.0); Hematocrit 41.1 % (36.0-46.0); Hemoglobin 13.9 g/dL (12.2-16.2); Lymphocytes # (auto) 0.8 10 ^3/uL (0.4-5.4); Lymphocytes % (auto) 5.2 % (10.0-50.0); Mean Corpuscular Hemoglobin 31.2 pg (28.0-32.0); Mean Corpuscular Hgb Conc. 33.8 g/dL (32.0-36.0); Mean Corpuscular Volume 92.1 fL (80.0-100.0); Monocytes % (auto) 6.3 % (0.0-12.0); Neutrophils # (auto) 13.9 10 ^3/uL (1.6-8.6); Red Blood Cells 4.46 10^6/uL (4.0-5.20); White Blood Cell 15.8 10^3/uL (4.4-10.8)
[2022-12-17 07:46] LABS: Albumin 3.6 g/dL (3.4-5.0); Calcium 8.7 mg/dL (8.5-10.1); Potassium 3.6 mmol/L (3.5-5.1)
[2022-12-17 07:50] LABS: BUN/Creatinine Ratio 23.7 (10.0-20.0); Bilirubin, Total 0.4 mg/dL (0.2-1.0); Total Protein 5.9 g/dL (6.4-8.2)
[2022-12-17] MEDS ORDERED: MORPHINE SULFATE INJ 2 MG/ml SYRG IV ONE (08:15)
[2022-12-17] MEDS ORDERED: ONDANSETRON HCL 4 MG/2 ML VIAL IV ONE (08:15)
[2022-12-17 10:33] LABS: Urine Bacteria NONE SEEN /hpf (None Seen); Urine Blood Negative /uL (Negative); Urine Specific Gravity 1.011 (1.001-1.035); Urine WBC 2 /hpf (0 - 5)
[2022-12-17] MEDS ORDERED: ALBUTEROL SULF 2.5 MG/0.5ML(0.5%) NEB SOLN NEB PRN (11:00)
[2022-12-17] MEDS ORDERED: IPRATROPIUM BROM 0.5 MG/2.5ML INH SOL NEB PRN (11:00)
[2022-12-17] MEDS: SODIUM CHLORIDE 0.9% 1,000 ML IV SCH (11:24)
[2022-12-17] MEDS: ONDANSETRON HCL 4 MG/2 ML VIAL IV PRN ×2 (13:38→19:38)
[2022-12-17] MEDS: MORPHINE SULFATE INJ 2 MG/ml SYRG IV PRN ×2 (13:39→19:38)
[2022-12-17 14:24] VITALS: BP 130/64
[2022-12-17] MEDS ORDERED: FAMO20TA10 PO (16:26)
[2022-12-17 16:58] VITALS: BP 118/42
[2022-12-17] MEDS: HYDROcodone-ACET 5/325MG TAB PO PRN (21:44)
[2022-12-18] VITALS (12 sets, daily range): BP systolic 97–143; BP diastolic 34–67
[2022-12-18] MEDS: SODIUM CHLORIDE 0.9% 1,000 ML IV SCH ×2 (01:34→15:36)
[2022-12-18] MEDS: ONDANSETRON HCL 4 MG/2 ML VIAL IV PRN ×2 (03:17→06:53)
[2022-12-18] MEDS: MORPHINE SULFATE INJ 2 MG/ml SYRG IV PRN ×2 (03:18→06:52)
[2022-12-18 06:39] LABS: Potassium 3.9 mmol/L (3.5-5.1)
[2022-12-18 06:46] LABS: Albumin 3.1 g/dL (3.4-5.0); BUN/Creatinine Ratio 25.6 (10.0-20.0); Basophils # (auto) 0 10 ^3/uL (0-0.2); Basophils % (auto) 0.4 % (0.0-2.0); Bilirubin, Total 0.8 mg/dL (0.2-1.0); Eosinophils # (auto) 0 10 ^3/uL (0-0.8); Eosinophils % (auto) 0.3 % (0.0-7.0); Hematocrit 36.4 % (36.0-46.0); Hemoglobin 12.2 g/dL (12.2-16.2); Lymphocytes # (auto) 1.6 10 ^3/uL (0.4-5.4); Lymphocytes % (auto) 12.7 % (10.0-50.0); Mean Corpuscular Hemoglobin 31.1 pg (28.0-32.0); Mean Corpuscular Hgb Conc. 33.6 g/dL (32.0-36.0); Mean Corpuscular Volume 92.5 fL (80.0-100.0); Monocytes # (auto) 1.9 10 ^3/uL (0-1.3); Monocytes % (auto) 15.6 % (0.0-12.0); Neutrophils # (auto) 8.8 10 ^3/uL (1.6-8.6); Red Blood Cells 3.93 10^6/uL (4.0-5.20); Red Cell Distribution Width 14.2 % (11.8-14.3); Total Protein 5.8 g/dL (6.4-8.2); White Blood Cell 12.4 10^3/uL (4.4-10.8)
[2022-12-18] MEDS: PANTOPRAZOLE 40 MG/10 ML VIAL INJ IV SCH (09:52)
[2022-12-18] MEDS: ENOXAPARIN SOD 40 MG/0.4 ML SYRINGE SC SCH (09:56)
[2022-12-18] MEDS ORDERED: ceFAZolin 1GM/50ML 100 ML IV ONE (11:43)
[2022-12-18] MEDS ORDERED: TETRACAINE 1% INJ 2 ML VIAL IJ ONE (12:28)
[2022-12-18] MEDS ORDERED: BUPIVACAINE 0.25% INJ 50ML VIAL ONE (12:31)
[2022-12-18] MEDS ORDERED: MORPHINE SULF PF 5 MG/10 ML VIAL ONE (12:33)
[2022-12-18] MEDS ORDERED: MIDAZOLAM HCL 2MG/2ML 2ml VIAL (1mg/ml) ONE (12:34)
[2022-12-18] MEDS ORDERED: fentaNYL CITRATE 100 MCG/2 ML VL ONE (12:34)
[2022-12-18] MEDS ORDERED: ePHEDrine SULFATE 50 MG/ML AMP IV PRN (13:30)
[2022-12-18] MEDS ORDERED: MIDAZOLAM HCL 2MG/2ML 2ml VIAL (1mg/ml) IV PRN (13:30)
[2022-12-18] MEDS ORDERED: HYDROmorphone HCL 2 MG/ML VL/or syr IV PRN (13:30)
[2022-12-18] MEDS ORDERED: ONDANSETRON HCL 4 MG/2 ML VIAL IV PRN (13:30)
[2022-12-18] MEDS ORDERED: NALOXONE HCL 0.4 MG/ML VIAL IV PRN (13:30)
[2022-12-18] MEDS ORDERED: LABETALOL HCL 5 MG/ML 4ML SYRINGE IV PRN (13:30)
[2022-12-18] MEDS ORDERED: DexAMETHasone SOD PHOS 10MG/1ML VIAL INJ IV PRN (13:30)
[2022-12-18] MEDS ORDERED: PHENYLEPHRINE HCL 10 MG/ML VL IV ONE (13:45)
[2022-12-18] MEDS ORDERED: PROPOFOL 10 MG/ML 20 ML IV ONE (13:46)
[2022-12-18] MEDS ORDERED: DexAMETHasone SOD PHOS 10MG/1ML VIAL INJ ONE (13:46)
[2022-12-18] MEDS: ceFAZolin 1GM/50ML 50 ML IV SCH (21:50)
[2022-12-18] MEDS ORDERED: FAMOTIDINE 20 MG TAB PO SCH (22:00)
[2022-12-18] MEDS ORDERED: LORazepam 2MG/ML-1ML VIAL IV PRN (22:45)
[2022-12-19] VITALS (19 sets, daily range): BP systolic 87–127; BP diastolic 50–110
[2022-12-19] MEDS: ceFAZolin 1GM/50ML 50 ML IV SCH ×2 (05:27→15:19)
[2022-12-19] MEDS: SODIUM CHLORIDE 0.9% 1,000 ML IV SCH ×2 (05:29→20:12)
[2022-12-19] MEDS: HYDROcodone-ACET 5/325MG TAB PO PRN ×3 (06:55→19:50)
[2022-12-19 07:13] LABS: Basophils # (auto) 0 10 ^3/uL (0-0.2); Basophils % (auto) 0.1 % (0.0-2.0); Eosinophils # (auto) 0 10 ^3/uL (0-0.8); Hematocrit 27.9 % (36.0-46.0); Hemoglobin 9.4 g/dL (12.2-16.2); Lymphocytes # (auto) 1.5 10 ^3/uL (0.4-5.4); Lymphocytes % (auto) 7.7 % (10.0-50.0); Mean Corpuscular Hemoglobin 31.7 pg (28.0-32.0); Mean Corpuscular Hgb Conc. 33.7 g/dL (32.0-36.0); Mean Corpuscular Volume 94.1 fL (80.0-100.0); Monocytes # (auto) 2.6 10 ^3/uL (0-1.3); Monocytes % (auto) 13.6 % (0.0-12.0); Neutrophils # (auto) 14.9 10 ^3/uL (1.6-8.6); Neutrophils % (auto) 78.6 % (37.0-80.0); Red Blood Cells 2.97 10^6/uL (4.0-5.20); Red Cell Distribution Width 14.3 % (11.8-14.3); White Blood Cell 18.9 10^3/uL (4.4-10.8)
[2022-12-19 07:57] LABS: Potassium 4.4 mmol/L (3.5-5.1)
[2022-12-19 08:06] LABS: BUN/Creatinine Ratio 30.8 (10.0-20.0); Calcium 7.9 mg/dL (8.5-10.1)
[2022-12-19] MEDS: ENOXAPARIN SOD 40 MG/0.4 ML SYRINGE SC SCH (09:12)
[2022-12-19] MEDS: PANTOPRAZOLE 40 MG/10 ML VIAL INJ IV SCH (09:14)
[2022-12-19] MEDS: DOCUSATE SOD 100 MG CAP PO PRN (09:15)
[2022-12-19] MEDS: THEOPHYLLINE 80 MG/15ml ORAL Elixir PO SCH (10:00)
[2022-12-19] MEDS: ONDANSETRON HCL 4 MG/2 ML VIAL IV PRN ×2 (12:51→17:24)
[2022-12-20] VITALS (10 sets, daily range): BP systolic 102–114; BP diastolic 31–51
[2022-12-20] MEDS: HYDROcodone-ACET 5/325MG TAB PO PRN ×3 (00:47→16:47)
[2022-12-20 07:18] LABS: Basophils # (auto) 0 10 ^3/uL (0-0.2); Basophils % (auto) 0.3 % (0.0-2.0); Monocytes # (auto) 2.3 10 ^3/uL (0-1.3)
[2022-12-20 07:20] LABS: Eosinophils # (auto) 0.1 10 ^3/uL (0-0.8); Eosinophils % (auto) 0.4 % (0.0-7.0); Hematocrit 20.4 % (36.0-46.0); Lymphocytes # (auto) 1.8 10 ^3/uL (0.4-5.4); Lymphocytes % (auto) 12.4 % (10.0-50.0); Mean Corpuscular Hemoglobin 31.8 pg (28.0-32.0); Mean Corpuscular Hgb Conc. 34.1 g/dL (32.0-36.0); Mean Corpuscular Volume 93.3 fL (80.0-100.0); Monocytes % (auto) 15.3 % (0.0-12.0); Neutrophils # (auto) 10.6 10 ^3/uL (1.6-8.6); Neutrophils % (auto) 71.6 % (37.0-80.0); Red Blood Cells 2.19 10^6/uL (4.0-5.20); Red Cell Distribution Width 14.1 % (11.8-14.3); White Blood Cell 14.8 10^3/uL (4.4-10.8)
[2022-12-20 07:27] LABS: BUN/Creatinine Ratio 39.7 (10.0-20.0); Calcium 7.7 mg/dL (8.5-10.1)
[2022-12-20] MEDS: ENOXAPARIN SOD 40 MG/0.4 ML SYRINGE SC SCH (08:49)
[2022-12-20] MEDS: PANTOPRAZOLE 40 MG/10 ML VIAL INJ IV SCH ×2 (08:50→21:04)
[2022-12-20] MEDS: SODIUM CHLORIDE 0.9% 1,000 ML IV SCH ×2 (08:50→21:05)
[2022-12-20] MEDS: DOCUSATE SOD 100 MG CAP PO PRN (08:50)
[2022-12-20] MEDS: THEOPHYLLINE 80 MG/15ml ORAL Elixir PO SCH (10:00)
[2022-12-20 12:32] LABS: Hematocrit 20.5 % (36.0-46.0)
[2022-12-20 13:42] LABS: Hemoglobin 6.8 g/dL (12.2-16.2)
[2022-12-20] MEDS ORDERED: LACTULOSE 20Gm/30ML SOLN PO ONE (19:30)
[2022-12-21] MEDS: HYDROcodone-ACET 5/325MG TAB PO PRN ×2 (03:07→10:52)
[2022-12-21 05:00] VITALS: BP 112/38
[2022-12-21 06:06] LABS: Basophils # (auto) 0 10 ^3/uL (0-0.2); Eosinophils # (auto) 0.1 10 ^3/uL (0-0.8); Lymphocytes # (auto) 1.3 10 ^3/uL (0.4-5.4); Mean Corpuscular Hgb Conc. 34.7 g/dL (32.0-36.0); Monocytes # (auto) 1.4 10 ^3/uL (0-1.3); Red Blood Cells 2.62 10^6/uL (4.0-5.20)
[2022-12-21 06:08] LABS: Basophils % (auto) 0.3 % (0.0-2.0); Eosinophils % (auto) 1.1 % (0.0-7.0); Hematocrit 23.6 % (36.0-46.0); Hemoglobin 8.2 g/dL (12.2-16.2); Lymphocytes % (auto) 12.3 % (10.0-50.0); Mean Corpuscular Hemoglobin 31.3 pg (28.0-32.0); Mean Corpuscular Volume 90.3 fL (80.0-100.0); Monocytes % (auto) 13.3 % (0.0-12.0); Neutrophils # (auto) 7.5 10 ^3/uL (1.6-8.6); Nucleated Red Blood Cells % 0.1 %; Red Cell Distribution Width 15.1 % (11.8-14.3); White Blood Cell 10.3 10^3/uL (4.4-10.8)
[2022-12-21 06:24] LABS: Potassium 3.9 mmol/L (3.5-5.1)
[2022-12-21 06:32] LABS: Albumin 2.2 g/dL (3.4-5.0); BUN/Creatinine Ratio 29.2 (10.0-20.0); Bilirubin, Total 0.8 mg/dL (0.2-1.0); Calcium 7.5 mg/dL (8.5-10.1); Total Protein 4.2 g/dL (6.4-8.2)
[2022-12-21 08:00] VITALS: BP 109/52
[2022-12-21] MEDS: PANTOPRAZOLE 40 MG/10 ML VIAL INJ IV SCH ×2 (09:03→21:02)
[2022-12-21] MEDS: THEOPHYLLINE 400 MG PO SCH (09:04)
[2022-12-21] MEDS: ENOXAPARIN SOD 40 MG/0.4 ML SYRINGE SC SCH (09:04)
[2022-12-21 12:00] VITALS: BP 103/56
[2022-12-21 16:00] VITALS: BP 102/57
[2022-12-21] MEDS: SODIUM CHLORIDE 0.9% 1,000 ML IV SCH (18:42)
[2022-12-21] MEDS: DOCUSATE SOD 100 MG CAP PO PRN (21:04)
[2022-12-21 22:00] VITALS: BP 101/44
[2022-12-22] MEDS: HYDROcodone-ACET 5/325MG TAB PO PRN ×4 (04:00→22:51)
[2022-12-22 05:00] VITALS: BP 118/47
[2022-12-22] MEDS: SODIUM CHLORIDE 0.9% 1,000 ML IV SCH (05:24)
[2022-12-22 08:00] VITALS: BP 103/51
[2022-12-22] MEDS: THEOPHYLLINE 400 MG PO SCH (10:04)
[2022-12-22] MEDS: ENOXAPARIN SOD 40 MG/0.4 ML SYRINGE SC SCH (10:04)
[2022-12-22] MEDS: PANTOPRAZOLE 40 MG/10 ML VIAL INJ IV SCH (10:04)
[2022-12-22] MEDS ORDERED: FLUTICASONE PROP NASAL SPR 0.05 % (50MCG) 16GM EACHNOSTRI ONE (10:30)
[2022-12-22] MEDS ORDERED: ALBUTEROL SULF 2.5 MG/0.5ML(0.5%) NEB SOLN NEB PRN (10:45)
[2022-12-22] MEDS: prednisoLONE ACETATE 1% OPTH SUSP 5ML RIGHTEYE SCH ×3 (11:07→21:33)
[2022-12-22 12:00] VITALS: BP 111/53
[2022-12-22] MEDS: Ensure HIGH Protein Chocolate 8oz Bottle PO SCH ×2 (14:22→18:00)
[2022-12-22 16:00] VITALS: BP 119/58
[2022-12-22] MEDS: DOCUSATE SOD 100 MG CAP PO PRN (21:32)
[2022-12-22] MEDS: FLUTICASONE PROP NASAL SPR 0.05 % (50MCG) 16GM EACHNOSTRI SCH (21:34)
[2022-12-22 22:00] VITALS: BP 117/60
[2022-12-23] VITALS (7 sets, daily range): BP systolic 103–128; BP diastolic 49–60
[2022-12-23] MEDS: prednisoLONE ACETATE 1% OPTH SUSP 5ML RIGHTEYE SCH ×4 (05:33→21:35)
[2022-12-23 07:18] LABS: Basophils # (auto) 0 10 ^3/uL (0-0.2); Basophils % (auto) 0.4 % (0.0-2.0); Eosinophils # (auto) 0.2 10 ^3/uL (0-0.8); Eosinophils % (auto) 2.2 % (0.0-7.0); Hematocrit 27.1 % (36.0-46.0); Hemoglobin 9.3 g/dL (12.2-16.2); Lymphocytes # (auto) 1.6 10 ^3/uL (0.4-5.4); Lymphocytes % (auto) 15.7 % (10.0-50.0); Mean Corpuscular Hemoglobin 31.3 pg (28.0-32.0); Mean Corpuscular Hgb Conc. 34.3 g/dL (32.0-36.0); Mean Corpuscular Volume 91.5 fL (80.0-100.0); Monocytes # (auto) 1.3 10 ^3/uL (0-1.3); Monocytes % (auto) 12.6 % (0.0-12.0); Neutrophils # (auto) 7.2 10 ^3/uL (1.6-8.6); Neutrophils % (auto) 69.1 % (37.0-80.0); Nucleated Red Blood Cells % 0.1 %; Red Blood Cells 2.96 10^6/uL (4.0-5.20); Red Cell Distribution Width 14.7 % (11.8-14.3); White Blood Cell 10.4 10^3/uL (4.4-10.8)
[2022-12-23 07:21] LABS: Calcium 8.1 mg/dL (8.5-10.1); Potassium 3.5 mmol/L (3.5-5.1)
[2022-12-23 07:24] LABS: BUN/Creatinine Ratio 35.7 (10.0-20.0)
[2022-12-23] MEDS: ENOXAPARIN SOD 40 MG/0.4 ML SYRINGE SC SCH (09:41)
[2022-12-23] MEDS: THEOPHYLLINE 400 MG PO SCH (09:41)
[2022-12-23] MEDS: Pro-Stat SF 30ml Vanilla PO SCH (09:41)
[2022-12-23] MEDS: FLUTICASONE PROP NASAL SPR 0.05 % (50MCG) 16GM EACHNOSTRI SCH ×2 (09:42→21:29)
[2022-12-23] MEDS: Ensure HIGH Protein Chocolate 8oz Bottle PO SCH ×3 (09:42→17:46)
[2022-12-23] MEDS: HYDROcodone-ACET 5/325MG TAB PO PRN ×2 (09:52→20:24)
[2022-12-23] MEDS ORDERED: LACTULOSE 20Gm/30ML SOLN PO ONE (10:00)
[2022-12-23] MEDS ORDERED: DOCUSATE SOD 100 MG CAP PO ONE (10:00)
[2022-12-23] MEDS ORDERED: PANTOPRAZOLE 40 MG TAB PO SCH (10:00)
[2022-12-23] MEDS: FAMOTIDINE 20 MG TAB PO SCH (17:52)
[2022-12-23] MEDS: ONDANSETRON HCL 4 MG/2 ML VIAL IV PRN (20:24)
[2022-12-24] MEDS: FAMOTIDINE 20 MG TAB PO SCH ×2 (05:54→18:53)
[2022-12-24] MEDS: prednisoLONE ACETATE 1% OPTH SUSP 5ML RIGHTEYE SCH ×4 (05:54→21:13)
[2022-12-24] MEDS: HYDROcodone-ACET 5/325MG TAB PO PRN ×2 (09:08→18:53)
[2022-12-24] MEDS: ENOXAPARIN SOD 40 MG/0.4 ML SYRINGE SC SCH (09:08)
[2022-12-24 09:09] VITALS: BP 126/52
[2022-12-24] MEDS: Pro-Stat SF 30ml Vanilla PO SCH (09:09)
[2022-12-24] MEDS: Ensure HIGH Protein Chocolate 8oz Bottle PO SCH ×3 (09:09→18:49)
[2022-12-24] MEDS: THEOPHYLLINE 400 MG PO SCH (09:09)
[2022-12-24] MEDS: FLUTICASONE PROP NASAL SPR 0.05 % (50MCG) 16GM EACHNOSTRI SCH ×2 (09:09→21:13)
[2022-12-24 13:09] VITALS: BP 120/60
[2022-12-24 17:00] VITALS: BP 123/52
[2022-12-24 22:00] VITALS: BP 105/52
[2022-12-25] MEDS: HYDROcodone-ACET 5/325MG TAB PO PRN ×3 (04:42→20:31)
[2022-12-25 05:00] VITALS: BP 112/44
[2022-12-25] MEDS: prednisoLONE ACETATE 1% OPTH SUSP 5ML RIGHTEYE SCH ×4 (06:04→21:45)
[2022-12-25] MEDS: FAMOTIDINE 20 MG TAB PO SCH ×2 (06:04→18:44)
[2022-12-25 09:00] VITALS: BP 123/53
[2022-12-25] MEDS: FLUTICASONE PROP NASAL SPR 0.05 % (50MCG) 16GM EACHNOSTRI SCH ×2 (09:38→21:43)
[2022-12-25] MEDS: THEOPHYLLINE 400 MG PO SCH (09:39)
[2022-12-25] MEDS: Ensure HIGH Protein Chocolate 8oz Bottle PO SCH ×3 (09:40→18:44)
[2022-12-25] MEDS: Pro-Stat SF 30ml Vanilla PO SCH (09:40)
[2022-12-25] MEDS: ENOXAPARIN SOD 40 MG/0.4 ML SYRINGE SC SCH (09:40)
[2022-12-25 13:07] VITALS: BP 132/85
[2022-12-25 17:10] VITALS: BP 116/58
[2022-12-25 22:00] VITALS: BP 111/48
[2022-12-26] MEDS: HYDROcodone-ACET 5/325MG TAB PO PRN ×2 (03:26→22:15)
[2022-12-26 05:00] VITALS: BP 101/45
[2022-12-26] MEDS: prednisoLONE ACETATE 1% OPTH SUSP 5ML RIGHTEYE SCH ×4 (05:51→22:00)
[2022-12-26] MEDS: FAMOTIDINE 20 MG TAB PO SCH ×2 (05:51→19:51)
[2022-12-26] MEDS: Ensure HIGH Protein Chocolate 8oz Bottle PO SCH ×3 (08:00→18:00)
[2022-12-26 09:00] VITALS: BP_SYST 114; BP_SYST 123; BP_DIAS 51; BP_DIAS 68
[2022-12-26] MEDS: Pro-Stat SF 30ml Vanilla PO SCH (10:00)
[2022-12-26] MEDS: FLUTICASONE PROP NASAL SPR 0.05 % (50MCG) 16GM EACHNOSTRI SCH ×2 (10:25→21:25)
[2022-12-26] MEDS: ENOXAPARIN SOD 40 MG/0.4 ML SYRINGE SC SCH (10:25)
[2022-12-26] MEDS: THEOPHYLLINE 400 MG PO SCH (10:25)
[2022-12-26 13:00] VITALS: BP 105/46
[2022-12-26 17:00] VITALS: BP 108/46
[2022-12-26] MEDS: ONDANSETRON HCL 4 MG/2 ML VIAL IV PRN (19:44)
[2022-12-26 22:00] VITALS: BP 122/48
[2022-12-27 05:00] VITALS: BP 117/52
[2022-12-27 05:34] LABS: Basophils # (auto) 0.1 10 ^3/uL (0-0.2); Basophils % (auto) 0.5 % (0.0-2.0); Eosinophils # (auto) 0.2 10 ^3/uL (0-0.8); Eosinophils % (auto) 1.9 % (0.0-7.0); Hematocrit 27.8 % (36.0-46.0); Hemoglobin 9.2 g/dL (12.2-16.2); Lymphocytes # (auto) 1.7 10 ^3/uL (0.4-5.4); Lymphocytes % (auto) 14.8 % (10.0-50.0); Mean Corpuscular Hemoglobin 30.9 pg (28.0-32.0); Mean Corpuscular Hgb Conc. 33.2 g/dL (32.0-36.0); Mean Corpuscular Volume 93.1 fL (80.0-100.0); Monocytes # (auto) 1.6 10 ^3/uL (0-1.3); Monocytes % (auto) 14.2 % (0.0-12.0); Neutrophils % (auto) 68.6 % (37.0-80.0); Nucleated Red Blood Cells % 0.1 %; Red Blood Cells 2.99 10^6/uL (4.0-5.20); Red Cell Distribution Width 14.9 % (11.8-14.3); White Blood Cell 11.6 10^3/uL (4.4-10.8)
[2022-12-27 05:42] LABS: Potassium 3.9 mmol/L (3.5-5.1)
[2022-12-27 05:51] LABS: Albumin 2.4 g/dL (3.4-5.0); BUN/Creatinine Ratio 30.2 (10.0-20.0); Bilirubin, Total 1.1 mg/dL (0.2-1.0); Total Protein 4.9 g/dL (6.4-8.2)
[2022-12-27] MEDS: prednisoLONE ACETATE 1% OPTH SUSP 5ML RIGHTEYE SCH ×4 (06:14→22:00)
[2022-12-27] MEDS: FAMOTIDINE 20 MG TAB PO SCH ×2 (06:14→17:54)
[2022-12-27] MEDS: Ensure HIGH Protein Chocolate 8oz Bottle PO SCH ×3 (07:27→17:54)
[2022-12-27] MEDS: Pro-Stat SF 30ml Vanilla PO SCH (07:28)
[2022-12-27 09:00] VITALS: BP 102/46
[2022-12-27] MEDS ORDERED: cefTRIAXone 1GM/50ML D5W 50 ML IV ONE (09:45)
[2022-12-27 09:56] LABS: Urine Bacteria FEW /hpf (None Seen); Urine Blood Negative /uL (Negative); Urine Mucus FEW (None Seen); Urine Specific Gravity 1.012 (1.001-1.035); Urine WBC 3 /hpf (0 - 5)
[2022-12-27] MEDS: HYDROcodone-ACET 5/325MG TAB PO PRN ×2 (10:03→22:11)
[2022-12-27] MEDS: ENOXAPARIN SOD 40 MG/0.4 ML SYRINGE SC SCH (10:04)
[2022-12-27] MEDS: FLUTICASONE PROP NASAL SPR 0.05 % (50MCG) 16GM EACHNOSTRI SCH ×2 (10:04→22:00)
[2022-12-27] MEDS: THEOPHYLLINE 400 MG PO SCH (10:05)
[2022-12-27 13:00] VITALS: BP 114/57
[2022-12-27] MEDS: ONDANSETRON HCL 4 MG/2 ML VIAL IV PRN (20:07)
[2022-12-27 22:00] VITALS: BP 116/50
[2022-12-27] MEDS: DOCUSATE SOD 100 MG CAP PO PRN (22:11)
[2022-12-28 05:00] VITALS: BP 121/49
[2022-12-28 06:00] VITALS: BP 111/47
[2022-12-28] MEDS: FAMOTIDINE 20 MG TAB PO SCH (06:06)
[2022-12-28] MEDS: prednisoLONE ACETATE 1% OPTH SUSP 5ML RIGHTEYE SCH ×3 (06:06→18:00)
[2022-12-28 07:33] LABS: Basophils # (auto) 0.1 10 ^3/uL (0-0.2); Basophils % (auto) 0.8 % (0.0-2.0); Eosinophils # (auto) 0.2 10 ^3/uL (0-0.8); Eosinophils % (auto) 2.7 % (0.0-7.0); Hematocrit 28.9 % (36.0-46.0); Hemoglobin 9.6 g/dL (12.2-16.2); Lymphocytes # (auto) 1.4 10 ^3/uL (0.4-5.4); Lymphocytes % (auto) 16.4 % (10.0-50.0); Mean Corpuscular Volume 93.8 fL (80.0-100.0); Monocytes # (auto) 1.4 10 ^3/uL (0-1.3); Monocytes % (auto) 15.9 % (0.0-12.0); Neutrophils # (auto) 5.6 10 ^3/uL (1.6-8.6); Neutrophils % (auto) 64.2 % (37.0-80.0); Nucleated Red Blood Cells % 0.1 %; Red Blood Cells 3.09 10^6/uL (4.0-5.20); Red Cell Distribution Width 15.5 % (11.8-14.3); White Blood Cell 8.7 10^3/uL (4.4-10.8)
[2022-12-28] MEDS: Ensure HIGH Protein Chocolate 8oz Bottle PO SCH (08:00)
[2022-12-28] MEDS ORDERED: cefTRIAXone 1GM/50ML D5W 50 ML IV SCH (09:00)
[2022-12-28] MEDS: HYDROcodone-ACET 5/325MG TAB PO PRN (09:39)
[2022-12-28] MEDS: Pro-Stat SF 30ml Vanilla PO SCH (10:00)
[2022-12-28] MEDS: THEOPHYLLINE 400 MG PO SCH (10:09)
[2022-12-28] MEDS: ENOXAPARIN SOD 40 MG/0.4 ML SYRINGE SC SCH (10:09)
[2022-12-28] MEDS: FLUTICASONE PROP NASAL SPR 0.05 % (50MCG) 16GM EACHNOSTRI SCH (10:16)
[2022-12-28 17:03] VITALS: BP 107/41
[2022-12-28 17:09] VITALS: BP 115/49
== END 2022-12-28 18:40 | DRG 481 ==
LOC: EDBD 04:03 → ER 04:03 → OVERFLOW 11:02 → CENTRAL 15:15 → TELE-CENTR 12-18 15:58 → CENTRAL 12-23 00:18
PROVIDERS: ADMIT Nurse Practitioner Family; ATTEND Internal Medicine
PROC: B41G1ZZ Fluoroscopy of Left Lower Extremity Arteries using Low Osmolar Contrast (ICD-10-PCS; 2022-12-18)
PROC: 0QS734Z Reposition Left Upper Femur with Internal Fixation Device, Percutaneous Approach (ICD-10-PCS; principal; 2022-12-18 12:40)
PROC: 30233N1 Transfusion of Nonautologous Red Blood Cells into Peripheral Vein, Percutaneous Approach (ICD-10-PCS; 2022-12-20)
DX: S72.141A Displaced intertrochanteric fracture of right femur, initial encounter for closed fracture (principal); D62 Acute posthemorrhagic anemia; E46 Unspecified protein-calorie malnutrition; N17.9 Acute kidney failure, unspecified; D72.829 Elevated white blood cell count, unspecified; J44.9 Chronic obstructive pulmonary disease, unspecified; W18.39XA Other fall on same level, initial encounter; K21.9 Gastro-esophageal reflux disease without esophagitis; H26.9 Unspecified cataract; Z74.01 Bed confinement status; Z88.2 Allergy status to sulfonamides; Y93.89 Activity, other specified; Y92.89 Other specified places as the place of occurrence of the external cause; Y99.8 Other external cause status; Z82.61 Family history of arthritis; Z83.3 Family history of diabetes mellitus; Z68.26 Body mass index [BMI] 26.0-26.9, adult
CPT/HCPCS: 36415; 70450; 70551; 71045; 71250; 72125; 73502; 74176; 76000; 80048; 80053; 80198; 81001; 84484; 85014; 85018; 85025; 85610; 85652; 86850; 86900; 86901; 86920; 93005; 93306; 94640; 95819; 96372; 96374; 96375; 97110; 97116; 97163; 97530; C9113; G0378; J0690; J0696; J1100; J2250; J2405; J2704; J3490; Q0162

== ENCOUNTER 2023-04-05 10:19 | Inpatient (IN) | payer OTHER ==
[~2023-04-05] VITALS: Ht 149.9 cm; Wt 52.7 kg
[~2023-04-05 10:19] MED LIST changes: -ALBU1AER4 IN; -CEPH250C PO; +FAMO20TA10 PO; -PRED20TA2 PO; -THEO300T5 PO
[2023-04-05 10:40] VITALS: PULSE 52; RESP 16; O2SAT 99
[2023-04-05] MEDS ORDERED: ALBUTEROL SULF 2.5 MG/0.5ML(0.5%) NEB SOLN NEB ONE (10:45)
[2023-04-05] MEDS ORDERED: IPRATROPIUM BROM 0.5 MG/2.5ML INH SOL NEB ONE (10:45)
[2023-04-05 10:57] LABS: Basophils # (auto) 0 10 ^3/uL (0-0.2); Basophils % (auto) 0.5 % (0.0-2.0); Eosinophils # (auto) 0.1 10 ^3/uL (0-0.8); Eosinophils % (auto) 0.9 % (0.0-7.0); Hemoglobin 14.6 g/dL (12.2-16.2); Lymphocytes # (auto) 1.9 10 ^3/uL (0.4-5.4); Lymphocytes % (auto) 32.9 % (10.0-50.0); Mean Corpuscular Hemoglobin 30.1 pg (28.0-32.0); Mean Corpuscular Volume 88.5 fL (80.0-100.0); Monocytes # (auto) 0.7 10 ^3/uL (0-1.3); Neutrophils # (auto) 3.2 10 ^3/uL (1.6-8.6); Neutrophils % (auto) 54.7 % (37.0-80.0); Nucleated Red Blood Cells % 0.1 %; Red Blood Cells 4.86 10^6/uL (4.0-5.20); Red Cell Distribution Width 15.4 % (11.8-14.3); White Blood Cell 5.9 10^3/uL (4.4-10.8)
[2023-04-05] MEDS: methylPREDNISolone SOD SUCC 40 MG/ML VL IV ONE ×2 (11:12→11:47)
[2023-04-05 11:22] LABS: Alanine Aminotransferase 11 U/L (7-40); Alkaline Phosphatase 83 U/L (46-116); Anion Gap 6 (5-15); Aspartate Aminotransferase 11 U/L (13-40); BUN/Creatinine Ratio 11.3 (10.0-20.0); Bilirubin, Total 0.7 mg/dL (0.2-1.0); Blood Urea Nitrogen 8 mg/dL (9-23); Calcium 9.2 mg/dL (8.7-10.4); Carbon Dioxide 30 mmol/L (20-30); Chloride 104 mmol/L (98-107); Glucose 93 mg/dL (74-106); Sodium 140 mmol/L (136-145); Total Protein 6.3 g/dL (5.7-8.2)
[2023-04-05 12:52] LABS: COVID19 ANTIGEN SOFIA FIA NEGATIVE (NEGATIVE)
[2023-04-05] MEDS ORDERED: IOHEXOL 350 MG/ML 100ML IJ ONE (12:56)
[2023-04-05 20:05] VITALS: PULSE 60; RESP 16; O2SAT 97
[2023-04-05] MEDS ORDERED: ACETAMINOPHEN 325 MG TAB PO PRN (21:15)
[2023-04-05] MEDS ORDERED: ALBUTEROL SULF 2.5 MG/0.5ML(0.5%) NEB SOLN NEB PRN (21:15)
[2023-04-05] MEDS ORDERED: MORPHINE SULFATE INJ 2 MG/ml SYRG IV PRN (21:15)
[2023-04-05] MEDS ORDERED: POTASSIUM CHL 20 Meq TABLET PO ONE (21:15)
[2023-04-05] MEDS ORDERED: ONDANSETRON HCL 4 MG/2 ML VIAL IV PRN (21:15)
[2023-04-05] MEDS ORDERED: NITROGLYCERIN 0.4 MG SL TAB SL PRN (21:15)
[2023-04-05 21:25] VITALS: BP 115/46; PULSE 60; RESP 16; TEMP 97.7; O2SAT 97
[2023-04-06] VITALS (16 sets, daily range): BP systolic 117–127; BP diastolic 59–63; PULSE 52–95; RESP 10–18; TEMP 97.4–97.5; O2SAT 2–100
[2023-04-06 05:22] LABS: Basophils # (auto) 0 10 ^3/uL (0-0.2); Basophils % (auto) 0.2 % (0.0-2.0); Eosinophils # (auto) 0 10 ^3/uL (0-0.8); Hematocrit 43.2 % (36.0-46.0); Hemoglobin 14.6 g/dL (12.2-16.2); Lymphocytes # (auto) 1.2 10 ^3/uL (0.4-5.4); Lymphocytes % (auto) 28.2 % (10.0-50.0); Mean Corpuscular Hemoglobin 29.7 pg (28.0-32.0); Mean Corpuscular Hgb Conc. 33.8 g/dL (32.0-36.0); Mean Corpuscular Volume 87.8 fL (80.0-100.0); Monocytes # (auto) 0.6 10 ^3/uL (0-1.3); Monocytes % (auto) 13.5 % (0.0-12.0); Neutrophils # (auto) 2.5 10 ^3/uL (1.6-8.6); Neutrophils % (auto) 58.1 % (37.0-80.0); Nucleated Red Blood Cells % 0.3 %; Red Blood Cells 4.92 10^6/uL (4.0-5.20); Red Cell Distribution Width 15.3 % (11.8-14.3); White Blood Cell 4.2 10^3/uL (4.4-10.8)
[2023-04-06 05:27] LABS: Chloride 106 mmol/L (98-107); Sodium 140 mmol/L (136-145)
[2023-04-06 05:29] LABS: Anion Gap 10 (5-15); Calcium 9.1 mg/dL (8.7-10.4); Carbon Dioxide 24 mmol/L (20-30)
[2023-04-06 05:34] LABS: Blood Urea Nitrogen 6 mg/dL (9-23); Glucose 121 mg/dL (74-106)
[2023-04-06] MEDS: IPRATROPIUM BROM 0.5 MG/2.5ML INH SOL NEB PRN (08:37)
[2023-04-06] MEDS ORDERED: THEO400T13 PO (08:46)
[2023-04-06] MEDS: cefTRIAXone 1GM/50ML D5W 50 ML IV SCH (09:15)
[2023-04-06] MEDS: ALBUTEROL SULF 2.5 MG/0.5ML(0.5%) NEB SOLN NEB SCH ×4 (10:07→22:03)
[2023-04-06] MEDS: BUDESONIDE (INHALATION) 0.5 MG/2 ML NEB NEB SCH ×2 (10:07→22:03)
[2023-04-06] MEDS: AZITHROMYCIN 500MG/ 250ML 250 ML IV SCH (10:09)
[2023-04-06] MEDS: ENOXAPARIN SOD 40 MG/0.4 ML SYRINGE SC SCH (10:09)
[2023-04-06] MEDS: PANTOPRAZOLE 40 MG TAB PO SCH (10:09)
[2023-04-06 12:49] LABS: Urine Bacteria NONE SEEN /hpf (None Seen); Urine Blood Negative /uL (Negative); Urine Clarity HAZY (Clear); Urine Color Yellow (Yellow); Urine Protein, UAD TRACE (Negative); Urine Specific Gravity 1.019 (1.001-1.035); Urine Urobilinogen Normal (Negative); Urine WBC 89 /hpf (0 - 5); Urine pH 6.5 (5.0-8.0)
[2023-04-06] MEDS: methylPREDNISolone SOD SUCC 40 MG/ML VL IV SCH ×2 (13:43→21:29)
[2023-04-06] MEDS ORDERED: POTASSIUM CHL 20 Meq TABLET PO ONE (19:45)
[2023-04-07] VITALS (14 sets, daily range): BP systolic 112–123; BP diastolic 44–63; PULSE 53–98; RESP 16–20; TEMP 97.5–98.2; O2SAT 93–100
[2023-04-07] MEDS: ALBUTEROL SULF 2.5 MG/0.5ML(0.5%) NEB SOLN NEB SCH ×5 (06:00→22:06)
[2023-04-07] MEDS: methylPREDNISolone SOD SUCC 40 MG/ML VL IV SCH ×3 (06:08→21:24)
[2023-04-07] MEDS: PANTOPRAZOLE 40 MG TAB PO SCH (08:19)
[2023-04-07] MEDS: ENOXAPARIN SOD 40 MG/0.4 ML SYRINGE SC SCH (08:19)
[2023-04-07] MEDS: cefTRIAXone 1GM/50ML D5W 50 ML IV SCH (08:19)
[2023-04-07] MEDS: AZITHROMYCIN 500MG/ 250ML 250 ML IV SCH (09:50)
[2023-04-07] MEDS: BUDESONIDE (INHALATION) 0.5 MG/2 ML NEB NEB SCH ×2 (11:19→22:06)
[2023-04-07] MEDS: IPRATROPIUM BROM 0.5 MG/2.5ML INH SOL NEB PRN ×2 (11:19→15:03)
[2023-04-07] MEDS ORDERED: POTASSIUM EFFERVESENT TAB 25 MEQ PO ONE (16:45)
[2023-04-08] VITALS (11 sets, daily range): BP systolic 111–131; BP diastolic 52–67; PULSE 56–86; RESP 14–18; TEMP 97.6–98.3; O2SAT 91–100
[2023-04-08] MEDS: BUDESONIDE (INHALATION) 0.5 MG/2 ML NEB NEB SCH (07:17)
[2023-04-08] MEDS: ALBUTEROL SULF 2.5 MG/0.5ML(0.5%) NEB SOLN NEB SCH ×4 (07:17→18:00)
[2023-04-08] MEDS: methylPREDNISolone SOD SUCC 40 MG/ML VL IV SCH ×2 (07:22→14:00)
[2023-04-08] MEDS: cefTRIAXone 1GM/50ML D5W 50 ML IV SCH (08:05)
[2023-04-08] MEDS: ENOXAPARIN SOD 40 MG/0.4 ML SYRINGE SC SCH (08:05)
[2023-04-08] MEDS: AZITHROMYCIN 500MG/ 250ML 250 ML IV SCH (09:42)
[2023-04-08 10:58] LABS: Hepatitis B Surface Antigen Negative (Negative)
[2023-04-08 11:19] LABS: Hepatitis C Antibody Negative (Negative)
== END 2023-04-08 19:08 | disposition hospice, home (50) | DRG 202 ==
LOC: ER 10:19 → EDBD 10:19 → TELE 21:21 → TELE-WESTW 04-06 15:51
PROVIDERS: ADMIT Nurse Practitioner; ATTEND Internal Medicine
DX: J20.9 Acute bronchitis, unspecified (principal); E44.1 Mild protein-calorie malnutrition; J44.1 Chronic obstructive pulmonary disease with (acute) exacerbation; I10 Essential (primary) hypertension; M19.90 Unspecified osteoarthritis, unspecified site; G89.29 Other chronic pain; R53.81 Other malaise; Z20.822 Contact with and (suspected) exposure to COVID-19; Z68.23 Body mass index [BMI] 23.0-23.9, adult; Z83.3 Family history of diabetes mellitus
CPT/HCPCS: 36415; 71045; 71275; 73502; 80048; 80053; 81001; 83735; 84484; 85025; 85379; 86803; 87081; 87340; 87426; 93005; 94640; 97110; 97116; 97163; 97530; 99291; G0378; J0696